=== PATIENT | male | born 1980 | race Caucasian/White ===

== ENCOUNTER 2020-06-10 23:14 | Outpatient (CLI) | payer OTHER | END 2020-06-10 23:15 | disposition critical access hospital (66) | LOC: EMS 23:14 | PROVIDERS: ATTEND Surgery | DX: R41.82 Altered mental status, unspecified (principal) | CPT/HCPCS: A0425; A0427 ==

== ENCOUNTER 2020-06-10 23:48 | Emergency (ER) | payer OTHER ==
[2020-06-11 00:19] LABS: BASOPHILS # (AUTO) 0.1 10^3/uL (0.0-0.1); BASOPHILS % (AUTO) 0.8 %; EOSINOPHILS # (AUTO) 0.3 10^3/uL (0.0-0.7); HGB - HEMOGLOBIN 15.4 g/dL (14.0-18.0); LYMPHOCYTES # (AUTO) 2.6 10^3/uL (1.5-3.5); LYMPHOCYTES % (AUTO) 41.4 %; MEAN CORPUSCULAR HEMOGLOBIN 32.6 pg (27.0-31.0); MEAN CORPUSCULAR HGB CONC 34.4 g/dL (32.0-36.0); MEAN CORPUSCULAR VOLUME 94.9 fL (80.0-94.0); MEAN PLATELET VOLUME 9.1 fL (7.4-11.4); MONOCYTES # (AUTO) 0.5 10^3/uL (0.0-1.0); MONOCYTES % (AUTO) 8.2 %; NEUTROPHILS # (AUTO) 2.7 10^3/uL (1.5-6.6); NEUTROPHILS % (AUTO) 44.3 %; PLT - PLATELET COUNT 271 10^3/uL (130-450); RED BLOOD COUNT 4.72 10^6/uL (4.70-6.10); RED CELL DISTRIBUTION WIDTH 12.7 % (12.0-15.0); WHITE BLOOD COUNT 6.2 x10^3/uL (4.8-10.8)
[2020-06-11 00:30] LABS: MUDS CUTOFF CONCENTRATIONS CUTOFF CONC BELOW:
[2020-06-11 00:32] LABS: BILIRUBIN,URINE NEGATIVE (NEGATIVE); GLUCOSE, URINE (UA) NEGATIVE (NEGATIVE); KETONES,URINE (UA) NEGATIVE (NEGATIVE); LEUKOCYTE ESTERASE, URINE NEGATIVE (NEGATIVE); NITRITE,URINE NEGATIVE (NEGATIVE); OCCULT BLOOD,URINE NEGATIVE (NEGATIVE); PROTEIN,URINE NEGATIVE (NEGATIVE); UROBILINOGEN,URINE 0.2 (NORMAL) E.U./dL (NORMAL)
[2020-06-11 00:33] LABS: CLARITY,URINE CLEAR (CLEAR)
[2020-06-11 00:33] LABS: ALBUMIN 4.6 g/dL (3.2-5.5); ALBUMIN/GLOBULIN RATIO 1.5 (1.0-2.2); BILIRUBIN,TOTAL 0.7 mg/dL (0.2-1.0); CALCIUM 9.1 mg/dL (8.5-10.3); CREATININE 0.9 mg/dL (0.6-1.2); TOTAL PROTEIN 7.6 g/dL (6.7-8.2)
[2020-06-11 00:42] LABS: AMPHETAMINE SCREEN,URINE POSITIVE (NEGATIVE); BENZODIAZEPINES SCREEN, URINE NEGATIVE (NEGATIVE); COCAINE SCREEN URINE NEGATIVE (NEGATIVE); METHADONE SCREEN, URINE NEGATIVE (NEGATIVE); METHAMPHETAMINES SCREEN, URINE NEGATIVE (NEGATIVE); OPIATE SCREEN, URINE NEGATIVE (NEGATIVE); OXYCODONE SCREEN, URINE NEGATIVE (NEGATIVE); PROPOXYPHENE SCREEN, URINE NEGATIVE (NEGATIVE); TRICYCLIC ANTIDEPRESSANT,URINE NEGATIVE (NEGATIVE)
[2020-06-11] MEDS ORDERED: THIAMINE 100 MG TABLET PO STA (01:51)
[2020-06-11 02:22] VITALS: BP 121/79
--- NOTE | 2020-06-11 07:05 | ED Physician Documentation ---
History of Present Illness - Stated complaint Stated Complaint: ALOC - Chief complaint Chief Complaint: Neuro - Additonal information Additional information: 39yM with past medical history of ADHD on Adderall, alcohol abuse currently on disulfiram, depression not currently on medications presents with syncopal episode while at work this past evening. Per EMS report the patient was found by coworkers on the ground confused. reports that he has been trying to stop drinking alcohol and was put on disulfiram this past week. He also weaned off of his SSRI 1 week ago. Other than that he had been feeling normal earlier in the day per her report. Patient history limited by appearance of mild sedation. Review of Systems Ten Systems: 10 systems reviewed and negative Constitutional: reports: Fever Neurologic: reports: Syncope PD PAST MEDICAL HISTORY - Past Medical History Past Medical History: Yes Psych: Depression, ADD/ADHD - Past Surgical History Past Surgical History: No - Present Medications Home Medications: Ambulatory Orders Medication Instructions Recorded Confirmed Dextroamphetamine/Amphetamine 1 tab PO DAILY 06/11/20 06/11/20 [Adderall 5 mg Tablet] Disulfiram [Antabuse] 1 tab PO DAILY 06/11/20 06/11/20 - Allergies Allergies/Adverse Reactions: Allergies Allergy/AdvReac Type Severity Reaction Status Date / Time No Known Drug Allergies Allergy Verified 06/11/20 00:00 - Social History Does the pt smoke?: No Smoking Status: Never smoker Does the pt drink ETOH?: No Does the pt have substance abuse?: Yes Substance Use and Type: Marijuana - Immunizations Immunizations are current?: Yes - POLST Patient has POLST: No PD ED PE NORMAL - Vitals Vital signs reviewed: Yes - General General: Alert and oriented X 3 - HEENT HEENT: Atraumatic, PERRL, EOMI - Neck Neck: No JVD - Cardiac Cardiac: RRR - Respiratory Respiratory: No respiratory distress - Abdomen Abdomen: Normal bowel sounds - Male Male : Deferred - Rectal Rectal: Deferred - Back Back: No CVA TTP - Derm Derm: Normal color - Extremities Extremities: No edema - Neuro Neuro: Alert and oriented X 3 (patient unable to recall circumstances leading up to ems arrival.), director of patient safety 2-12 intact, No motor deficit, No sensory deficit - Psych Psych: Other (mildly sedated affect) Results - Vitals Vitals: Vital Signs - 24 hr 11/09/2806/11/20 06/11/20 23:57 00:12 02:10 Temperature 36.3 C L 36.3 C L Heart Rate 95 97 90 Respiratory 14 16 16 Rate Blood Pressure 139/76 H 121/71 121/79 O2 Saturation 99 98 99 Oxygen O2 Source Room air - Labs Labs: Laboratory Tests 06/11/20 06/11/20 06/11/20 00:05 00:05 00:25 WBC 6.2 RBC 4.72 Hgb 15.4 Hct 44.8 MCV 94.9 H MCH 32.6 H MCHC 34.4 RDW 12.7 Plt Count 271 MPV 9.1 Neut # (Auto) 2.7 Lymph # (Auto) 2.6 [place] # (Auto) 0.5 Eos # (Auto) 0.3 Baso # (Auto) 0.1 Absolute Nucleated RBC 0.00 Nucleated RBC % 0.0 Sodium 144 Potassium 3.7 Chloride 108 Carbon Dioxide 27 Anion Gap 9.0 BUN 12 Creatinine 0.9 Estimated GFR (MDRD) 93 Glucose 110 H Calcium 9.1 Total Bilirubin 0.7 AST 21 ALT 22 Alkaline Phosphatase 56 Total Protein 7.6 Albumin 4.6 Globulin 3.0 Albumin/Globulin Ratio 1.5 Lipase 26 Urine Color YELLOW Urine Clarity CLEAR Urine pH 6.0 Ur Specific [place] <=1.005 Urine Protein NEGATIVE Urine Glucose (UA) NEGATIVE Urine Ketones NEGATIVE Urine Occult Blood NEGATIVE Urine Nitrite NEGATIVE Urine Bilirubin NEGATIVE Urine Urobilinogen 0.2 (NORMAL) Ur Leukocyte Esterase NEGATIVE Ur Microscopic Review NOT INDICATED Urine Culture Comments NOT INDICATED Urine Opiates Screen NEGATIVE Ur Oxycodone Screen NEGATIVE Urine Methadone Screen NEGATIVE Ur Propoxyphene Screen NEGATIVE Ur Barbiturates Screen NEGATIVE Ur Tricyclics Screen NEGATIVE Ur Phencyclidine Scrn NEGATIVE Ur Amphetamine Screen POSITIVE H U Methamphetamines Scrn NEGATIVE U Benzodiazepines Scrn NEGATIVE Urine Cocaine Screen NEGATIVE U Cannabinoids Screen POSITIVE H Ethyl Alcohol 363.1 PD MEDICAL DECISION MAKING - ED course Complexity details: reviewed results, re-evaluated patient, d/w patient, d/w family ED course: 39-year-old man with past medical history of alcohol abuse on Antabuse presents with possible syncopal episode while at work. Patient denied alcohol use however was found to have elevated blood alcohol level on tox screen as well as marijuana. Discussed with patient and his re critical importance of complete abstinence from alcohol when taking Antabuse. Lab work, EKG work-up otherwise unremarkable. Plan to follow-up with their doctor Dr Dockery who prescribed his antabuse. Strict return precautions given. Patient will not return to work until cleared by his doctor. Departure - Departure Disposition: 01 Home, Self Care Clinical Impression: Syncope, Alcohol abuse Condition: Good Instructions: Addiction Alcohol Comments: Please follow up immediately with Dr. Tarun Dockery's office. Do not take disulfiram if you continue to drink alcohol. make sure to hydrate well and rest. Disulfiram: Patient drug information [employer] here. Copyright 1226-4340 [employer]. All rights reserved. (For additional information see "Disulfiram: Drug information") Brand Names: [place] Antabuse Warning Do not take this drug for at least 12 hours after drinking alcohol or taking drugs that have alcohol in them. What is this drug used for? It is used to help you stop drinking alcohol. What do I need to tell my doctor BEFORE I take this drug? If you are allergic to this drug; any part of this drug; or any other drugs, foods, or substances. Tell your doctor about the allergy and what signs you had. If you have heart problems. If you have psychosis. If you drink alcohol or take any drugs that have alcohol. If you are taking metronidazole. If you are breast-feeding. Do not breast-feed while you take this drug. This is not a list of all drugs or health problems that interact with this drug. Tell your doctor and pharmacist about all of your drugs (prescription or OTC, natural products, vitamins) and health problems. You must check to make sure that it is safe for you to take this drug with all of your drugs and health p roblems. Do not start, stop, or change the dose of any drug without checking with your doctor. What are some things I need to know or do while I take this drug? Tell all of your health care providers that you take this drug. This includes your doctors, nurses, pharmacists, and dentists. Have blood work checked as you have been told by the doctor. Talk with the doctor. Avoid alcohol and drugs or food with alcohol in them. This also includes alcohol in hidden forms like some sauces, vinegars, and topical products like aftershaves and back rubs. Avoid alcohol for 2 weeks after disulfiram is stopped. Very bad and sometimes deadly reactions can happen if this drug is taken with alcohol or drugs or food with alcohol in them. Talk with your doctor. Tell your doctor if you are or plan on getting . You will need to talk about the benefits and risks of using this drug while you are . What are some side effects that I need to call my doctor about right away? WARNING/CAUTION: Even though it may be rare, some people may have very bad and sometimes deadly side effects when taking a drug. Tell your doctor or get medical help right away if you have any of the following signs or symptoms that may be related to a very bad side effect: Signs of an allergic reaction, like rash; hives; itching; red, swollen, blistered, or peeling skin with or without fever; wheezing; tightness in the chest or throat; trouble breathing, swallowing, or talking; unusual hoarseness; or swelling of the mouth, face, lips, tongue, or throat. Change in eyesight. A burning, numbness, or tingling feeling that is not normal. Mood changes. Change in how you act. Very bad and sometimes deadly liver problems have happened with this drug. Call your doctor right away if you have signs of liver problems like dark urine, feeling tired, not hungry, upset stomach or stomach pain, light-colored stools, throwing up, or yellow skin or eyes. What are some other side effects of this drug? All drugs may cause side effects. However, many people have no side effects or only have minor side effects. Call your doctor or get medical help if any of these side effects or any other side effects bother you or do not go away: Feeling sleepy. Feeling tired or weak. Not able to get or keep an erection. Pimples (acne). Headache. Change in taste. These are not all of the side effects that may occur. If you have questions about side effects, call your doctor. Call your doctor for medical advice about side effects. You may report side effects to your national health agency. How is this drug best taken? Use this drug as ordered by your doctor. Read all information given to you. Follow all instructions closely. Take with or without food. Tablet can be crushed and mixed with food or liquid. What do I do if I miss a dose? Take a missed dose as soon as you think about it. If it is close to the time for your next dose, skip the missed dose and go back to your normal time. Do not take 2 doses at the same time or extra doses. How do I store and/or throw out this drug? Store at room temperature protected from light. Store in a dry place. Do not store in a bathroom. Keep all drugs in a safe place. Keep all drugs out of the reach of children and pets. Throw away unused or drugs. Do not flush down a toilet or pour down a drain unless you are told to do so. Check with your pharmacist if you have questions about the best way to throw out drugs. There may be drug take-back programs in your area. General drug facts If your symptoms or health problems do not get better or if they become worse, call your doctor. Do not share your drugs with others and do not take anyone else's drugs. Some drugs may have another patient information leaflet. If you have any questions about this drug, please talk with your doctor, nurse, pharmacist, or other health care provider. If you think there has been an overdose, call your poison control center or get medical care right away. Be ready to tell or show what was taken, how much, and when it happened. Discharge Date/Time: 06/11/20 02:10
--- NOTE | 2020-06-11 07:06 | CT Report ---
PROCEDURE: HEAD WO INDICATIONS: Acute mental status changes. TECHNIQUE: Noncontrast 4.5 mm thick angled axial sections acquired from the foramen magnum to the vertex. For r adiation dose reduction, the following was used: automated exposure control, adjustment of mA and/or kV according to patient size. COMPARISON: None. FINDINGS: Image quality: Excellent. CSF spaces: Basal cisterns are patent. No extra-axial fluid collections. Ventricles are normal in size and shape. Brain: No midline shift. No intracranial masses or hemorrhage. Douglas-white matter interface is norm al. Skull and face: Calvarium and visualized facial bones are intact, without suspicious lesions. Sinuses: Visualized sinuses and mastoids are clear. IMPRESSION: No acute intracranial disease process. Reviewed by: Marilu Maria MD, PhD on 06/11/2020 7:04 AM PST Approved by: Marilu Maria MD, PhD on 06/11/2020 7:04 AM PST Station ID: [id number]
== END 2020-06-11 02:10 | disposition home or self-care (01) ==
LOC: ED 23:48
DX: R55 Syncope and collapse (principal); F10.129 Alcohol abuse with intoxication, unspecified; F90.9 Attention-deficit hyperactivity disorder, unspecified type
CPT/HCPCS: 36415; 70450; 80053; 80306; 80320; 81003; 83690; 85025; 93005; 99283; 99284; A9270; 81001; 87086

== ENCOUNTER 2022-07-01 10:35 | Outpatient (CLI) | payer OTHER | END 2022-07-01 10:36 | disposition left against medical advice (07) | LOC: EMS 10:35 | DX: R55 Syncope and collapse (principal); R41.82 Altered mental status, unspecified ==